=== PATIENT | male | born 1990 | race Caucasian/White ===

== ENCOUNTER 2020-03-26 17:56 | Emergency (ER) | payer BC ==
[2020-03-26] MEDS: predniSONE 20 MG Tab PO ONE ×2 (19:09→20:41)
--- NOTE | 2020-03-26 19:14 | EDM.PDOC ---
ED HPI GENERAL MEDICAL PROBLEM - General Chief Complaint: Neurological Problem Stated Complaint: VERTIGO Time Seen by Provider: 03/26/20 18:34 Source of Information: Reports: Patient, Significant Other History Limitations: Reports: No Limitations - History of Present Illness INITIAL COMMENTS - FREE TEXT/NARRATIVE: Patient presents with vertigo, right frontal headache and one episode of vomiting. This started about 27 hours ago and hasn't resolved yet. He has had similar episodes about 5 times in the past year or so and most of the time they resolve in 24 hours. One episode was treated with prednisone 20 mg qd x 5 days which seemed to help. He has used Meclizine prn but hasn't ever provided noticeable benefit. He uses Zyrtec daily for prevention. He denies ringing or roaring in ears, hearing loss, visual change. It does affect his balance some. He doesn't have a PCP but saw a provider that told him it is likely labyrinthitis. The vertigo is triggered by lateral head movement and not affected noticeably by moving head up or down. He has never had head CT or physical therapy for this. - Related Data Allergies Allergy/AdvReac Type Severity Reaction Status Date / Time soybean Allergy Airway Verified 03/26/20 18:14 Tightness Home Meds: Home Meds Cetirizine [ZyrTEC] 10 mg PO DAILY 03/26/20 [History] Meclizine [Antivert] 25 mg PO DAILY 03/26/20 [History] diphenhydrAMINE [Benadryl] 25 mg PO QID PRN 03/26/20 [History] Past Medical History - Past Health History Medical/Surgical History: Denies Medical/Surgical History HEENT History: Reports: None Psychiatric History: Reports: Anxiety, Depression Other Psychiatric History: not been diagnosed with anxiety or depression but patient states he thinks he has both - Infectious Disease History Infectious Disease History: Reports: Chicken Pox - Past Surgical History HEENT Surgical History: Reports: Oral Surgery Social & Family History - Tobacco Use Smoking Status *Q: Never Smoker - Caffeine Use Caffeine Use: Reports: Coffee, Soda, Tea - Recreational Drug Use Recreational Drug Use: No ED ROS GENERAL - Review of Systems Review Of Systems: See Below Constitutional: Denies: Fever, Chills, Malaise, Weakness, Fatigue HEENT: Reports: Vertigo. Denies: Ear Discharge, Ear Pain, Eye Discharge, Hearing Loss, Throat Pain, Vision Change Respiratory: Denies: Shortness of Breath, Cough Cardiovascular: Denies: Chest Pain, Lightheadedness, Syncope GI/Abdominal: Reports: Nausea (mild now), Vomiting. Denies: Diarrhea : Reports: No Symptoms Musculoskeletal: Denies: Neck Pain, Shoulder Pain, Arm Pain, Back Pain Skin: Denies: Cyanosis, Jaundice, Mottled, Pallor, Diaphoresis Neurological: Reports: Headache. Denies: Confusion, Seizure, Syncope, Trouble Speaking, Weakness Psychiatric: Denies: Agitation, Anxiety, Confusion ED EXAM, NEURO - Physical Exam Exam: See Below Exam Limited By: No Limitations General Appearance: Alert, WD/WN, No Apparent Distress Eye Exam: Bilateral Eye: EOMI, Nystagmus (very slight with Luc Corona Hudspeth to right ), PERRL Ears: Normal External Exam, Normal Canal, Hearing Grossly Normal, Normal TMs Nose: Normal Inspection, Normal Mucosa, No Blood Throat/Mouth: Normal Inspection, Normal Lips, Normal Voice, No Airway Compromise Head Exam: Atraumatic, Normocephalic Neck: Normal Inspection, Supple, Full Range of Motion Respiratory/Chest: No Respiratory Distress, Lungs Clear, Normal Breath Sounds Cardiovascular: Regular Rate, Rhythm, No Murmur GI/Abdominal: Normal Bowel Sounds, Soft, Non-Tender, No Organomegaly, No Distention, No Abnormal Bruit Neurological: Alert, Normal Mood/Affect, CN II-XII Intact, No Motor/Sensory Deficits, Oriented x 3, Other (Sayre Corona Hudspeth test only mildly produces symptoms; R>L) Back Exam: Normal Inspection, Full Range of Motion. No: CVA Tenderness (L), CVA Tenderness (R) Extremities: Normal Inspection, Normal Range of Motion Psychiatric: Normal Affect, Normal Mood Skin Exam: Warm, Dry, Intact, Normal Color, No Rash Course - Vital Signs Last Recorded V/S: Last Vital Signs Temp 97.1 F 03/26/20 18:04 Pulse 79 03/26/20 18:04 Resp 18 03/26/20 18:04 BP 135/67 03/26/20 18:04 Pulse Ox 97 03/26/20 18:04 - Orders/Labs/Meds Meds: Medications Discontinued Medications Generic Name Dose Route Start Last Admin Trade Name Freq PRN Reason Stop Dose Admin Prednisone 20 mg 03/26/20 19:03 03/26/20 19:09 Prednisone PO 03/26/20 19:04 20 mg ONETIME ONE Administration - Re-Assessments/Exams Free Text/Narrative Re-Assessment/Exam: 03/26/20 20:[address] is normal. Patient experienced symptomatic improvement during one of the earlier worse episodes on prednisone 20 mg qd x 5 days, so we will repeat this regimen for now. We discussed that at this point it is unclear whether this is Vestibular Neuritis, Labyrinthitis (which normally includes unilateral hearing loss, which patient doesn't have), BPPV or some other cause. The usual glucocorticoid course of treatment of Vestibular Neuritis is a longer, tapered course of prednisone which may be helpful later when the diagnosis is established. Also PT will likely be able to provide improvement once he has definitive diagnosis. Patient agrees with the plan and is discharged to home in stable condition. Departure - Departure Time of Disposition: 20:16 Disposition: Home, Self-Care 01 Condition: Good Clinical Impression: Vertigo - Discharge Information Referrals: PCP,None [Primary Care Provider] - Forms: ED Department Discharge Additional Instructions: Take the prednisone as directed. You can use your Meclizine also if it provides some help. Follow up with a PCP to evaluated this further and possibly see a specialist for definitive diagnosis and treatment options. This could be Vestibular Neuritis, Labyrinthitis or Benign Paroxysmal Positional Vertigo (BPPV), etc as we discussed. Sepsis Event Note (ED) - Evaluation Sepsis Screening Result: No Definite Risk - Focused Exam Vital Signs: Vital Signs Temp Pulse Resp BP Pulse Ox 03/26/20 18:04 97.1 F 79 18 135/67 97
--- NOTE | 2020-03-26 20:07 | CT ---
[id number] CT/CT Head WO IV EXAM: CT Head WO IV CLINICAL DATA: HEADACHE VERTIGO COMPARISON: NO PREVIOUS SIMILAR EXAM IS AVAILABLE FOR COMPARISON. FINDINGS: There is no mass or mass effect. There is no hemorrhage or hydrocephalus. There are no extra-axial fluid collections. There are no sites of abnormal attenuation. IMPRESSION: NO PLAIN CT EVIDENCE OF ACUTE INTRACRANIAL PROCESS. Anthony Bonilla MD 03/26/202005 Thank you for allowing us to participate in the care of your patient.
== END 2020-03-26 20:30 | disposition home or self-care (01) ==
LOC: KA.ED 17:56
DX: R42 Dizziness and giddiness (principal); Z91.018 Allergy to other foods
CPT/HCPCS: 70450; 99284; 99284-25; J7512